=== PATIENT | female | born 1960 | race Caucasian/White ===

== ENCOUNTER 2021-11-16 13:20 | Inpatient (IN) | payer OTHER ==
[2021-11-16 15:38] VITALS: BMI 39.1
[2021-11-16] MEDS ORDERED: Ascorbic Acid 500 mg Chewable Tablet PO SCH (16:45)
[2021-11-16] MEDS ORDERED: Cholecalciferol (Vitamin D3) 400 UNITS TAB PO SCH (16:45)
[2021-11-16] MEDS ORDERED: Potassium Chloride 20 MEQ TAB PO SCH (17:45)
[2021-11-16] MEDS: Benzonatate 100 MG CAP PO PRN (17:58)
[2021-11-16] MEDS: Ondansetron PF 4 MG/2 ML Vial IVP PRN (18:37)
[2021-11-16] MEDS: GUAIFENESIN SF SOLN 200 MG/10 ML UDCUP PO PRN (21:49)
[2021-11-16] MEDS: traZODone HCl 150 MG TAB PO PRN (22:35)
[2021-11-17] MEDS: Levothyroxine Sodium 50 MCG TAB PO SCH (06:07)
[2021-11-17] MEDS: Ondansetron PF 4 MG/2 ML Vial IVP PRN ×2 (06:19→13:41)
[2021-11-17] MEDS: GUAIFENESIN SF SOLN 200 MG/10 ML UDCUP PO PRN ×2 (06:19→08:57)
[2021-11-17] MEDS: Benzonatate 100 MG CAP PO PRN (06:19)
[2021-11-17] MEDS: Dexamethasone 10 MG/ML VIAL SLOW IVP SCH (08:56)
[2021-11-17] MEDS: Losartan 25 MG TAB PO SCH (08:56)
[2021-11-17] MEDS: Cholecalciferol (Vitamin D3) 400 UNITS TAB PO SCH (08:56)
[2021-11-17] MEDS: Nebivolol HCl 5 MG TAB PO SCH (08:56)
[2021-11-17] MEDS: Ascorbic Acid 500 mg Chewable Tablet PO SCH (08:57)
[2021-11-17] MEDS: Acetaminophen 325 MG TAB PO PRN ×2 (08:57→20:58)
[2021-11-17] MEDS ORDERED: FLU VACC QS2021-22(6MOS UP)/PF 60 MCG/0.5 ML SYRINGE IM ONE (09:00)
[2021-11-17] MEDS ORDERED: Enoxaparin Sodium 40 MG/0.4 ML SYRINGE SC SCH (13:15)
[2021-11-17] MEDS: Thyroid 60 MG TAB PO SCH (13:47)
[2021-11-17 15:39] LABS: #Lymphocytes 0.6 thou/uL (1.20-3.40); #Monocytes 0.2 thou/uL (0.11-0.59); #Neutrophils 7.5 thou/uL (1.40-6.50); %Eosinophils 0.1 % (0.0-10.0); %Monocytes 2.9 % (0.0-10.0); %Neutrophils 90.1 % (42.0-75.0); Hemoglobin 13.6 g/dL (12.0-16.0); Mean Corpuscular HGB CONC 33.7 g/dL (32.0-36.0); Mean Corpuscular Hemoglobin 30.8 pg (27.0-31.0); Mean Corpuscular Volume 91.4 fL (78.0-98.0); Mean Platelet Volume 7.7 fL (7.4-10.4); Platelet Count 355 thou/uL (130-400); RBC Distribution Width 12.1 % (11.5-14.5); Red Blood Cell (RBC) Count 4.42 mill/uL (4.20-5.40); White Blood Cell (WBC) Count 8.3 thou/uL (4.8-10.8)
[2021-11-17 16:03] LABS: ALT (SGPT) 62 U/L (8-55); AST (SGOT) 44 U/L (5-34); Albumin 3.2 g/dL (3.5-5.0); Alkaline Phosphatase 114 U/L (40-110); Anion Gap 13 mmol/L (10-20); BUN (Urea Nitrogen) 13 mg/dL (9.8-20.1); Bilirubin, Total 0.5 mg/dL (0.2-1.2); CRP (Inflammatory) 12.53 mg/dL (= or < 0.5); Calc. Creatinine Clearance 155 mL/min (70-130); Calcium 9.1 mg/dL (7.8-10.44); Carbon Dioxide 21 mmol/L (22-29); Chloride 108 mmol/L (98-107); Globulin 3.7 g/dL (2.4-3.5); Glucose 167 mg/dL (70-105); Potassium 4.3 mmol/L (3.5-5.1); Protein, Total 6.9 g/dL (6.0-8.3); Sodium 138 mmol/L (136-145)
[2021-11-17] MEDS ORDERED: hydrALAZINE 20 MG/ML VIAL SLOW IVP PRN (18:11)
[2021-11-17] MEDS: traZODone HCl 150 MG TAB PO PRN (20:57)
[2021-11-17] MEDS: Guaifenesin DM 100-10/5 ML UDCUP PO PRN (20:59)
[2021-11-18] MEDS: Levothyroxine Sodium 50 MCG TAB PO SCH (05:30)
[2021-11-18 06:58] LABS: ALT (SGPT) 48 U/L (8-55); AST (SGOT) 33 U/L (5-34); Albumin 2.9 g/dL (3.5-5.0); Alkaline Phosphatase 100 U/L (40-110); Anion Gap 10 mmol/L (10-20); BUN (Urea Nitrogen) 14 mg/dL (9.8-20.1); Bilirubin, Total 0.4 mg/dL (0.2-1.2); Calc. Creatinine Clearance 167 mL/min (70-130); Calcium 8.8 mg/dL (7.8-10.44); Carbon Dioxide 27 mmol/L (22-29); Chloride 105 mmol/L (98-107); Globulin 3.4 g/dL (2.4-3.5); Glucose 130 mg/dL (70-105); Protein, Total 6.3 g/dL (6.0-8.3); Sodium 138 mmol/L (136-145)
[2021-11-18] MEDS: Thyroid 60 MG TAB PO SCH (08:39)
[2021-11-18] MEDS: Cholecalciferol (Vitamin D3) 400 UNITS TAB PO SCH (08:39)
[2021-11-18] MEDS: Ondansetron PF 4 MG/2 ML Vial IVP PRN (08:39)
[2021-11-18] MEDS: Ascorbic Acid 500 mg Chewable Tablet PO SCH (08:40)
[2021-11-18] MEDS: Losartan 25 MG TAB PO SCH (08:40)
[2021-11-18] MEDS: Nebivolol HCl 5 MG TAB PO SCH (08:41)
[2021-11-18] MEDS: Dexamethasone 10 MG/ML VIAL SLOW IVP SCH (08:41)
[2021-11-18] MEDS: Enoxaparin Sodium 40 MG/0.4 ML SYRINGE SC SCH (08:41)
[2021-11-18] MEDS: CeleCOXIB 100 MG CAP PO PRN (10:23)
[2021-11-18] MEDS: Acetaminophen 325 MG TAB PO PRN (10:23)
[2021-11-18] MEDS: traZODone HCl 150 MG TAB PO PRN (21:26)
[2021-11-18] MEDS: Guaifenesin DM 100-10/5 ML UDCUP PO PRN (21:26)
[2021-11-19] MEDS: Levothyroxine Sodium 50 MCG TAB PO SCH (05:20)
[2021-11-19 06:23] LABS: #Lymphocytes 1.1 thou/uL (1.20-3.40); #Monocytes 0.5 thou/uL (0.11-0.59); #Neutrophils 4.8 thou/uL (1.40-6.50); %Basophils 0.1 % (0.0-1.0); %Eosinophils 0.1 % (0.0-10.0); %Lymphocytes 17.4 % (21.0-51.0); %Monocytes 8.1 % (0.0-10.0); %Neutrophils 74.3 % (42.0-75.0); Mean Corpuscular HGB CONC 33.7 g/dL (32.0-36.0); Mean Corpuscular Hemoglobin 30.9 pg (27.0-31.0); Mean Corpuscular Volume 91.9 fL (78.0-98.0); Mean Platelet Volume 8.6 fL (7.4-10.4); Platelet Count 352 thou/uL (130-400); RBC Distribution Width 11.8 % (11.5-14.5); Red Blood Cell (RBC) Count 4.22 mill/uL (4.20-5.40); White Blood Cell (WBC) Count 6.5 thou/uL (4.8-10.8)
[2021-11-19 06:46] LABS: ALT (SGPT) 49 U/L (8-55); AST (SGOT) 43 U/L (5-34); Albumin 2.7 g/dL (3.5-5.0); Alkaline Phosphatase 94 U/L (40-110); Anion Gap 13 mmol/L (10-20); BUN (Urea Nitrogen) 17 mg/dL (9.8-20.1); Bilirubin, Total 0.4 mg/dL (0.2-1.2); Calc. Creatinine Clearance 155 mL/min (70-130); Calcium 8.6 mg/dL (7.8-10.44); Carbon Dioxide 23 mmol/L (22-29); Chloride 107 mmol/L (98-107); Globulin 3.5 g/dL (2.4-3.5); Glucose 121 mg/dL (70-105); Potassium 4.4 mmol/L (3.5-5.1); Protein, Total 6.2 g/dL (6.0-8.3); Sodium 139 mmol/L (136-145)
[2021-11-19] MEDS: Nebivolol HCl 5 MG TAB PO SCH (08:50)
[2021-11-19] MEDS: Ascorbic Acid 500 mg Chewable Tablet PO SCH (08:51)
[2021-11-19] MEDS: Cholecalciferol (Vitamin D3) 400 UNITS TAB PO SCH (08:51)
[2021-11-19] MEDS: Losartan 25 MG TAB PO SCH (08:51)
[2021-11-19] MEDS: Thyroid 60 MG TAB PO SCH (08:51)
[2021-11-19] MEDS: Enoxaparin Sodium 40 MG/0.4 ML SYRINGE SC SCH (08:51)
[2021-11-19] MEDS: Dexamethasone 10 MG/ML VIAL SLOW IVP SCH (08:54)
[2021-11-19] MEDS: Ondansetron PF 4 MG/2 ML Vial IVP PRN ×2 (09:34→17:57)
[2021-11-19] MEDS: Acetaminophen 325 MG TAB PO PRN ×2 (09:46→15:18)
[2021-11-19] MEDS: CeleCOXIB 100 MG CAP PO PRN (17:58)
[2021-11-19] MEDS: traZODone HCl 150 MG TAB PO PRN (20:28)
[2021-11-20] MEDS: Levothyroxine Sodium 50 MCG TAB PO SCH (05:56)
[2021-11-20] MEDS: Enoxaparin Sodium 40 MG/0.4 ML SYRINGE SC SCH (09:10)
[2021-11-20] MEDS: Thyroid 60 MG TAB PO SCH (09:10)
[2021-11-20] MEDS: Nebivolol HCl 5 MG TAB PO SCH (09:11)
[2021-11-20] MEDS: Cholecalciferol (Vitamin D3) 400 UNITS TAB PO SCH (09:11)
[2021-11-20] MEDS: Ascorbic Acid 500 mg Chewable Tablet PO SCH (09:11)
[2021-11-20] MEDS: Losartan 25 MG TAB PO SCH (09:11)
[2021-11-20] MEDS: Ondansetron PF 4 MG/2 ML Vial IVP PRN (09:45)
[2021-11-20] MEDS: Dexamethasone 10 MG/ML VIAL SLOW IVP SCH (11:10)
[2021-11-20 11:29] VITALS: BP 143/79; TEMP 97.4
[2021-11-20] MEDS: Acetaminophen 325 MG TAB PO PRN (11:38)
[2021-11-20] MEDS: CeleCOXIB 100 MG CAP PO PRN (12:47)
== END 2021-11-20 15:59 | disposition home or self-care (01) | DRG 177 ==
LOC: T4-A 13:20
PROVIDERS: ADMIT Internal Medicine; ATTEND Internal Medicine
PROC: 8E0ZXY6 Isolation (ICD-10-PCS; principal; 2021-11-16)
PROC: 3E0333Z Introduction of Anti-inflammatory into Peripheral Vein, Percutaneous Approach (ICD-10-PCS; 2021-11-17)
DX: U07.1 COVID-19 (principal); J12.82 Pneumonia due to coronavirus disease 2019; J96.01 Acute respiratory failure with hypoxia; E78.5 Hyperlipidemia, unspecified; I10 Essential (primary) hypertension; F32.A Depression, unspecified; G89.29 Other chronic pain; E89.0 Postprocedural hypothyroidism; Z88.2 Allergy status to sulfonamides; Z88.8 Allergy status to other drugs, medicaments and biological substances; Z88.5 Allergy status to narcotic agent; Z79.51 Long term (current) use of inhaled steroids; Z79.899 Other long term (current) drug therapy
CPT/HCPCS: 36415; 80053; 82728; 85025; 85379; 86140; 90471; 90686; 90732; G0008; G0009; J0360; J1100; J1650; J2405

== ENCOUNTER 2022-12-16 13:45 | Outpatient (CLI) | payer OTHER | END 2022-12-16 13:46 | disposition home or self-care (01) | LOC: RAD-FRANK 13:45 | PROVIDERS: ATTEND Nurse Practitioner Family | DX: R05.2 Subacute cough (principal); I51.7 Cardiomegaly; M41.9 Scoliosis, unspecified | CPT/HCPCS: 71046 ==

== ENCOUNTER 2024-05-25 14:25 | Outpatient (CLI) | payer OTHER | END 2024-05-25 14:26 | disposition home or self-care (01) | LOC: BICMAMMO 14:25 | PROVIDERS: ATTEND Nurse Practitioner Family | DX: Z12.31 Encounter for screening mammogram for malignant neoplasm of breast (principal); Z80.3 Family history of malignant neoplasm of breast; Z85.850 Personal history of malignant neoplasm of thyroid | CPT/HCPCS: 77063; 77067 ==